=== PATIENT | female | born 1995 | race Hispanic/Latino ===

== ENCOUNTER 2017-10-29 17:43 | Emergency (ER) | payer SELFPAY ==
[2017-10-29 19:30] LABS: HCG Qualitative,Urine Negative (Negative)
--- NOTE | 2017-10-29 21:14 | XRay Report ---
FINAL REPORT EXAM: XR KNEE 3V LT HISTORY: injury, pain TECHNIQUE: Frontal, lateral, oblique views left knee Comparison: None FINDINGS: There is no evidence of fracture or subluxation. The joint spaces are maintained. The soft tissues are unremarkable. IMPRESSION: 1. No plain film evidence of bony or soft tissue abnormality.
[2017-10-29] MEDS ORDERED: MOTRIN PO ONE (22:35)
--- NOTE | 2017-10-29 22:37 | Emergency Department Report ---
ED Lower Extremity HPI - General Chief Complaint: Extremity Injury, Lower Stated Complaint: DISLOCATED LEFT KNEE Time Seen by Provider: 10/29/17 22:24 Source: patient Mode of arrival: Wheelchair Limitations: Physical Limitation - History of Present Illness Initial Comments: 22-year-old occasion females comes and states that she was at work last night which was morning approximately 3:50 AM when she believes she dislocated her knee. 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 Patient does admit to having previous injuries up to 10 times on her left knee. She has taken nothing for pain. 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 Patient's last menstrual period 10/24/2017. Complaint: knee injury -: This morning Time: 03:50 Injury: Knee: Left Type of Injury: inversion Place: work Severity scale (0 -10): 4 Worsens With: weight bearing Associated Symptoms: unable to bear weight - Related Data Previous Rx's Medication Instructions Recorded Last Taken Type Ibuprofen [Motrin 600 MG tab] 600 mg PO Q8H #12 tablet 10/29/17 Unknown Rx Allergies Allergy/AdvReac Type Severity Reaction Status Date / Time fruits Allergy Unknown Uncoded 10/29/17 18:28 ED Review of Systems ROS: Stated complaint: DISLOCATED LEFT KNEE Other details as noted in HPI Comment: All other systems reviewed and negative Musculoskeletal: arthralgia ED Past Medical Hx - Past Medical History Previous Medical History?: No - Surgical History Past Surgical History?: No - Social History Smoking Status: Current Every Day Smoker Substance Use Type: Alcohol, Marijuana - Medications Home Medications: Home Medications Medication Instructions Recorded Confirmed Last Taken Type Ibuprofen [Motrin 600 MG tab] 600 mg PO Q8H #12 tablet 10/29/17 Unknown Rx ED Physical Exam - General Limitations: Physical Limitation General appearance: alert (left knee), in no apparent distress - Head Head exam: Present: atraumatic, normocephalic - Expanded Lower Extremity Exam Left Hip exam: Present: full ROM. Absent: tenderness, swelling Upper Leg exam: Present: tenderness Knee exam: Present: tenderness, crepidus. Absent: swelling, abrasion, laceration, ecchymosis, deformity, dislocation, erythema, effusion, full knee extension Lower Leg exam: Present: normal inspection. Absent: tenderness, swelling Ankle exam: Present: normal inspection, full ROM. Absent: tenderness, swelling Neuro vascular tendon exam: Present: no vascular compromise - Back Exam Back exam: Present: tenderness (lumbar sacral paraspinal tenderness) - Neurological Exam Neurological exam: Present: alert, oriented X3 - Psychiatric Psychiatric exam: Present: normal affect, normal mood - Skin Skin exam: Present: warm, dry, intact, normal color. Absent: rash ED Course Vital Signs 10/29/17 18:23 Temperature 98.6 F Pulse Rate 108 H Respiratory 16 Rate Blood Pressure 127/81 O2 Sat by Pulse 97 Oximetry ED Lower Extremity MDM - Radiology Data X-ray knee 3. Left impression no plain film evidence of bony or soft tissue abnormalities. Read by Leticia Ambriz - Medical Decision Making Patient has been evaluated by this provider in fast track. Ibuprofen given for pain management. Knee immobilizer and crutch teaching Referral to Dr. Dodd orthopedic provider Referral to [facility] Critical care attestation.: If time is entered above; I have spent that time in minutes in the direct care of this critically ill patient, excluding procedure time. ED Disposition Clinical Impression: Left anterior knee pain Disposition: DC-01 TO HOME OR SELFCARE Is pt being admited?: No Does the pt Need Aspirin: No Condition: Stable Additional Instructions: Please take pain medication as prescribed. Please wear knee immobilizer for comfort ice for comfort. In follow-up with an orthopedic provider I have listed one below. Also follow-up with [facility] for physical examination. Prescriptions: Ibuprofen [Motrin 600 MG tab] 600 mg PO Q8H #12 tablet Referrals: GERARDO SELLERS MD [Primary Care Provider] - 3-5 Days ANDREE DODD MD [Staff Physician] - 3-[address] [facility] [Provider Group] - 3-5 Days Forms: Work/School Release Form(ED)
[2017-10-29 23:29] VITALS: BP 128/76
== END 2017-10-29 22:50 | disposition home or self-care (01) ==
LOC: ED 17:43
DX: M25.562 Pain in left knee (principal); F17.200 Nicotine dependence, unspecified, uncomplicated; F12.10 Cannabis abuse, uncomplicated; Z91.018 Allergy to other foods
CPT/HCPCS: 81025